=== PATIENT | female | born 1955 | race Two or more races ===

== ENCOUNTER 2019-02-24 23:33 | Inpatient (IN) | payer OTHER ==
[~2019-02-24] VITALS: Ht 160 cm; Wt 96.4 kg
[~2019-02-24 23:33] MED LIST: ASPI-1182 PO; ATEN50TA PO; ATOR10TA84 PO; FAMO20 PO; LOSA50TA64 PO
[2019-02-24] MEDS ORDERED: HYDR-4069 PO (23:47)
[2019-02-25 00:53] LABS: BASOPHILS % (AUTO) 0.4 % (0.0-2.0); EOSINOPHILS % (AUTO) 5.6 % (1.0-6.0); HEMATOCRIT 38.3 % (36-46); HEMOGLOBIN 12.8 g/dL (12.0-16.0); LYMPHOCYTES # (AUTO) 1.6 K/uL (1.0-4.8); LYMPHOCYTES % (AUTO) 15.6 % (22.0-44.0); MEAN CORPUSCULAR HEMOGLOBIN 29.6 pg (26.0-34.0); MEAN CORPUSCULAR HGB CONC 33.4 G/dL (31.0-37.0); MEAN CORPUSCULAR VOLUME 89 fL (80-100); MONOCYTES # (AUTO) 0.6 K/uL (0.1-1.0); MONOCYTES % (AUTO) 6.1 % (2.0-9.0); NEUTROPHILS # (AUTO) 7.5 K/uL (1.8-7.7); NEUTROPHILS % (AUTO) 72.3 % (40.0-70.0); PLATELET COUNT (AUTO) 361 K/uL (150-450); RED BLOOD CELL COUNT(AUTO) 4.32 MIL/uL (4.00-5.20); RED CELL DISTRIBUTION WIDTH 13.2 % (11.5-14.5)
[2019-02-25 01:07] LABS: ANION GAP 9 mmol/L (8-16); CALCIUM, TOTAL 9.8 mg/dL (8.8-10.5); CARBON DIOXIDE 31 mmol/L (22-29); CHLORIDE 100 mmol/L (98-107); GLOMERULAR FILTR. RATE CALC > 60 mL/min (>60); GLUCOSE,RANDOM 110 mg/dL (70-110); POTASSIUM 4.2 mmol/L (3.5-5.1); SODIUM SERUM 140 mmol/L (136-145); UREA NITROGEN, BLOOD 12 mg/dL (7-18)
[2019-02-25 01:11] LABS: LACTIC ACID 0.9 mmol/L (0.4-2.0)
[2019-02-25 01:17] LABS: ALANINE AMINOTRANSFERASE 15 U/L (12-78); ALBUMIN 3.8 g/dL (3.4-5.0); ALKALINE PHOSPHATASE 126 U/L (46-116); ASPARTATE AMINOTRANSFERASE 15 U/L (15-37); BILIRUBIN,TOTAL 0.5 mg/dL (0.1-1.0); TOTAL PROTEIN, SERUM 7.7 g/dL (6.4-8.2)
[2019-02-25] MEDS ORDERED: SODIUM CHLORIDE 0.9% 1,000 ML IV ONE (01:30)
[2019-02-25] MEDS ORDERED: VANCOMYCIN HCL 1 GM/D5% WATER 200 ML IV ONE ×3 (01:30→11:00)
[2019-02-25] MEDS ORDERED: SODIUM CHLORIDE 0.9% 100 ML ONE (01:38)
[2019-02-25] MEDS ORDERED: IOVERSOL 350 MG/ML 150 ML VIAL ONE (01:38)
[2019-02-25] MEDS ORDERED: MORPHINE SULFATE 4 MG/ML SYRINGE IVP ONE (04:15)
[2019-02-25] MEDS ORDERED: ACETAMINOPHEN 325 MG TABLET PO PRN ×2 (06:15→10:15)
[2019-02-25] MEDS ORDERED: ONDANSETRON HCL 4 MG/2 ML VIAL IVP PRN ×2 (06:15→10:15)
[2019-02-25] MEDS ORDERED: 0.9% SODIUM CHLORIDE 10 ML SYRINGE IVP PRN (06:15)
[2019-02-25] MEDS ORDERED: GADOBUTROL 1 MMOL/ML 10 ML VIAL IVP ONE (08:26)
[2019-02-25 08:45] VITALS: BP 138/72
[2019-02-25] MEDS ORDERED: BISACODYL 10 MG RECTAL RECTAL SUPPOSITORY PR PRN (10:15)
[2019-02-25] MEDS ORDERED: MAGNESIUM HYDROXIDE SUSPENSION 30 ML UDCUP PO PRN (10:15)
[2019-02-25] MEDS ORDERED: ZOLPIDEM TARTRATE 5 MG TABLET PO PRN (10:15)
[2019-02-25] MEDS ORDERED: SODIUM CHLORIDE 0.9% 500 ML IV ONE (11:00)
[2019-02-25] MEDS: HYDROCODONE/ACETAMINOPHEN 5-325 MG TABLET PO PRN ×3 (11:04→23:49)
[2019-02-25 11:15] VITALS: BP 133/67
[2019-02-25 15:16] VITALS: BP 136/76
[2019-02-25] MEDS: HEPARIN SODIUM,PORCINE 5,000 UNITS/ML VIAL SQ SCH ×2 (16:02→23:49)
[2019-02-25] MEDS: VANCOMYCIN HCL 1.25 GM in DEXTROSE 5%-WATER 250 ML IV SCH (18:07)
[2019-02-25 19:45] VITALS: BP 122/58
[2019-02-25] MEDS: ATORVASTATIN CALCIUM 10 MG TABLET PO SCH (20:22)
[2019-02-25] MEDS: DOCUSATE SODIUM 100 MG CAPSULE PO SCH (20:22)
[2019-02-25] MEDS: ATENOLOL 50 MG TABLET PO SCH (20:22)
[2019-02-25 23:49] VITALS: BP 151/77
[2019-02-26 04:51] VITALS: BP 138/78
[2019-02-26] MEDS: VANCOMYCIN HCL 1.25 GM in DEXTROSE 5%-WATER 250 ML IV SCH ×2 (06:28→17:56)
[2019-02-26 07:28] VITALS: BP 155/69
[2019-02-26] MEDS: DOCUSATE SODIUM 100 MG CAPSULE PO SCH ×2 (09:00→20:59)
[2019-02-26] MEDS: ASPIRIN 81 MG EC TABLET PO SCH (09:07)
[2019-02-26] MEDS: LOSARTAN POTASSIUM 50 MG TABLET PO SCH (09:07)
[2019-02-26] MEDS: PANTOPRAZOLE SODIUM 40 MG DR TABLET PO SCH (09:07)
[2019-02-26] MEDS: ATENOLOL 50 MG TABLET PO SCH ×2 (09:07→21:00)
[2019-02-26] MEDS: HEPARIN SODIUM,PORCINE 5,000 UNITS/ML VIAL SQ SCH ×2 (09:07→15:20)
[2019-02-26 09:26] LABS: ANION GAP 5 mmol/L (8-16); CALCIUM, TOTAL 9.4 mg/dL (8.8-10.5); CARBON DIOXIDE 31 mmol/L (22-29); CHLORIDE 103 mmol/L (98-107); CREATININE 0.91 mg/dL (0.60-1.30); GLOMERULAR FILTR. RATE CALC > 60 mL/min (>60); GLUCOSE,RANDOM 120 mg/dL (70-110); POTASSIUM 3.5 mmol/L (3.5-5.1); SODIUM SERUM 139 mmol/L (136-145); UREA NITROGEN, BLOOD 9 mg/dL (7-18)
[2019-02-26 11:10] VITALS: BP 156/81
[2019-02-26] MEDS: MORPHINE SULFATE 2 MG/ML SYRINGE IVP PRN ×2 (11:51→16:06)
[2019-02-26 15:10] VITALS: BP 145/77
[2019-02-26 19:54] VITALS: BP 133/78
[2019-02-26] MEDS: ATORVASTATIN CALCIUM 10 MG TABLET PO SCH (21:00)
[2019-02-26] MEDS: HYDROCODONE/ACETAMINOPHEN 5-325 MG TABLET PO PRN (21:04)
[2019-02-26 23:24] VITALS: BP 145/84
[2019-02-27] MEDS: HEPARIN SODIUM,PORCINE 5,000 UNITS/ML VIAL SQ SCH ×2 (04:02→08:10)
[2019-02-27 04:19] VITALS: BP 151/67
[2019-02-27] MEDS: VANCOMYCIN HCL 1.25 GM in DEXTROSE 5%-WATER 250 ML IV SCH (05:39)
[2019-02-27] MEDS: HYDROCODONE/ACETAMINOPHEN 5-325 MG TABLET PO PRN (05:58)
[2019-02-27 07:23] LABS: ANION GAP 8 mmol/L (8-16); CALCIUM, TOTAL 9.2 mg/dL (8.8-10.5); CARBON DIOXIDE 29 mmol/L (22-29); CHLORIDE 101 mmol/L (98-107); CREATININE 0.91 mg/dL (0.60-1.30); GLOMERULAR FILTR. RATE CALC > 60 mL/min (>60); GLUCOSE,RANDOM 116 mg/dL (70-110); POTASSIUM 3.5 mmol/L (3.5-5.1); SODIUM SERUM 138 mmol/L (136-145); UREA NITROGEN, BLOOD 11 mg/dL (7-18); VANCOMYCIN,RANDOM 27.3 mcg/mL (25.0-50.0)
[2019-02-27] MEDS: PANTOPRAZOLE SODIUM 40 MG DR TABLET PO SCH (08:10)
[2019-02-27] MEDS: DOCUSATE SODIUM 100 MG CAPSULE PO SCH (08:10)
[2019-02-27] MEDS: LOSARTAN POTASSIUM 50 MG TABLET PO SCH (08:10)
[2019-02-27] MEDS: ATENOLOL 50 MG TABLET PO SCH (08:10)
[2019-02-27] MEDS: ASPIRIN 81 MG EC TABLET PO SCH (08:10)
[2019-02-27 08:13] VITALS: BP 133/76
[2019-02-27] MEDS ORDERED: CEPH500 PO (11:01)
[2019-02-27] MEDS ORDERED: HYDR-4061 PO (11:02)
[2019-02-27 11:40] VITALS: BP 150/66
== END 2019-02-27 12:00 | disposition home or self-care (01) | DRG 863 ==
LOC: EMS 23:34 → 4E 02-25 06:00
PROVIDERS: ADMIT Internal Medicine; ATTEND Internal Medicine
DX: T81.41XA Infection following a procedure, superficial incisional surgical site, initial encounter (principal); I10 Essential (primary) hypertension; E78.5 Hyperlipidemia, unspecified; E78.00 Pure hypercholesterolemia, unspecified; G89.18 Other acute postprocedural pain; Y83.8 Other surgical procedures as the cause of abnormal reaction of the patient, or of later complication, without mention of misadventure at the time of the procedure; Y92.89 Other specified places as the place of occurrence of the external cause; Z98.1 Arthrodesis status
CPT/HCPCS: 74177; 74183; 83605; 87040; 87081; A9585; G0378; J1644; J2270; J3370; J7030; J7040; J7050; J7060